=== PATIENT | female | born 1985 | race Two or more races ===

== ENCOUNTER 2022-06-25 05:32 | Day surgery (SDC) | payer OTHER ==
[~2022-06-25 05:32] MED LIST: FIORICET TABLET1 TAB PO; MULTIVIT PO; VITAMIN D PO
== END 2022-06-25 11:50 | disposition home or self-care (01) ==
LOC: CIR.AMB 05:32
PROVIDERS: ATTEND Obstetrics & Gynecology
DX: N72 Inflammatory disease of cervix uteri (principal); J45.909 Unspecified asthma, uncomplicated; Z86.16 Personal history of COVID-19

== ENCOUNTER 2023-01-14 20:04 | Emergency (ER) | payer OTHER ==
[~2023-01-14] VITALS: Ht 167.6 cm; Wt 59.0 kg
== END 2023-01-14 22:13 | disposition home or self-care (01) ==
LOC: ER 20:04
DX: U07.1 COVID-19 (principal); R05.9 Cough, unspecified; R09.81 Nasal congestion; Z20.822 Contact with and (suspected) exposure to COVID-19

== ENCOUNTER → 2023-05-11 | Emergency (ER) | payer OTHER ==
[~2023-05-11] VITALS: Ht 160 cm; Wt 65.3 kg
== END | disposition left against medical advice (07) ==
LOC: ER 19:14
DX: Z53.21 Procedure and treatment not carried out due to patient leaving prior to being seen by health care provider (principal)

== ENCOUNTER 2023-07-18 18:10 | Emergency (ER) | payer OTHER ==
[~2023-07-18] VITALS: Ht 160 cm; Wt 67.1 kg
== END 2023-07-18 20:51 | disposition home or self-care (01) ==
LOC: ER 18:10
DX: M43.6 Torticollis (principal)
CPT/HCPCS: 96372; 99282; J1885; J2360